=== PATIENT | male | born 1985 | race Caucasian/White ===

== ENCOUNTER → 2019-05-28 | Outpatient (CLI) | payer BC | LOC: MHCPAIN 08:06 | DX: G89.29 Other chronic pain (principal); M47.817 Spondylosis without myelopathy or radiculopathy, lumbosacral region; M54.16 Radiculopathy, lumbar region; M53.3 Sacrococcygeal disorders, not elsewhere classified | CPT/HCPCS: G0463 ==

== ENCOUNTER → 2021-06-10 | Outpatient (CLI) | payer BC | LOC: COL.RAD 10:01 | DX: N50.3 Cyst of epididymis (principal) ==